=== PATIENT | female | born 1965 | race Caucasian/White ===

== ENCOUNTER 2022-10-03 11:27 | Emergency (ER) | payer MEDICARE, OTHER ==
[~2022-10-03] VITALS: Ht 160 cm; Wt 72.1 kg
[~2022-10-03 11:27] MED LIST: ACTEMRA162 MG/0.9 SC; ADAL40PEN INJ; ALBU.083IS IH; ALBU3IS INH; ALBU90I INH; ALBU90OI; ALBU90OI61 INH; ALLOVERT; AMOCLA875 PO; BECL40OI INH; Crutch1 EACH MISC; FLUSAL1005 IH; FLUSAL2505; FLUT110OIA IH; Flagyl500 MG PO; HYDACE5 PO; IPRAIS NEB; MONT4 PO; NAPR220 PO; Naprosyn500 MG PO; Norco 5-325 Ta1 EACH PO; OMEP20ER PO; OXYACE5T PO; PRED10 PO; PRED20 PO; SULF500A PO; Ventolin5 MG/1 ML INH; Zofran Odt8 MG SL
[2022-10-03 12:27] LABS: BASOPHILS ABSOLUTE AUTO 0.09 K/mm3 (0.00-0.23); BASOPHILS PERCENT AUTO 1 % (0-2); EOSINOPHILS ABSOLUTE AUTO 0.61 K/mm3 (0.00-0.68); EOSINOPHILS PERCENT AUTO 7 % (0-6); Hematocrit 52.7 % (33.0-51.0); Hemoglobin 16.8 g/dL (11.5-16.0); IMMATURE GRAN ABSOLUTE AUTO 0.01 K/mm3 (0.00-0.10); IMMATURE GRAN PERCENT AUTO 0 % (0-1); LYMPHOCYTES ABSOLUTE AUTO 2.15 K/mm3 (0.84-5.20); LYMPHOCYTES PERCENT AUTO 25 % (21-46); MONOCYTES PERCENT AUTO 7 % (4-13); Mean Corpuscular HGB 27.5 pg (26.0-34.0); Mean Corpuscular HGB Conc 31.9 g/dL (31.5-36.5); Mean Corpuscular Volume 86 fL (80-100); Mean Platelet Volume 12.1 fL (9.1-12.4); NEUTROPHILS ABSOLUTE AUTO 5.01 K/mm3 (1.96-9.15); NEUTROPHILS PERCENT AUTO 59 % (41-73); Platelet Count 229 K/mm3 (150-400); RDW Coefficient Variation 12.4 % (11.7-14.2); RDW Standard Deviation 39.2 fL (35.1-46.3); Red Blood Cell Count 6.11 M/mm3 (3.80-5.20); White Blood Cell Count 8.47 K/mm3 (4.00-11.30)
[2022-10-03] MEDS ORDERED: Rituxan10 MG/ML IV (12:37)
[2022-10-03 12:40] LABS: Albumin, Blood 3.7 g/dL (3.4-5.0); Albumin/Globulin Ratio 0.9 (0.8-1.8); Bilirubin, Total 0.6 mg/dL (0.1-1.0); Bun/Creatinine Ratio 14.6 (12.0-20.0); Calcium, Blood 9.5 mg/dL (8.5-10.1); Creatinine, Blood 0.69 mg/dL (0.40-1.00); Globulin, Blood 3.9 g/dL (2.2-4.0); Potassium, Blood 3.8 mmol/L (3.5-5.5); Total Protein, Blood 7.6 g/dL (6.4-8.2)
[2022-10-03 12:59] LABS: Influenza A, PCR NEGATIVE (NEGATIVE); Influenza B, PCR NEGATIVE (NEGATIVE); Resp Syncytial Virus, PCR NEGATIVE (NEGATIVE); SARS-Cov-2 (COVID-19) PCR, MMC NEGATIVE (NEGATIVE)
[2022-10-03] MEDS ORDERED: PRED20 PO (13:46)
== END 2022-10-03 14:10 | disposition home or self-care (01) ==
LOC: ER 11:27
PROVIDERS: Physician Assistant
DX: J45.901 Unspecified asthma with (acute) exacerbation (principal); Z79.899 Other long term (current) drug therapy; Z79.52 Long term (current) use of systemic steroids; Z88.1 Allergy status to other antibiotic agents; Z88.8 Allergy status to other drugs, medicaments and biological substances; Z20.822 Contact with and (suspected) exposure to COVID-19
CPT/HCPCS: 0241U; 36415; 71045; 80053; 85025; 94640; 94644; 94664; 96374; 99285-25; J2930

== ENCOUNTER 2023-07-24 14:52 | Emergency (ER) | payer MEDICARE, OTHER ==
[~2023-07-24] VITALS: Ht 157.5 cm; Wt 81.2 kg
[~2023-07-24 14:52] MED LIST changes: +Rituxan10 MG/ML IV
[2023-07-24 15:19] LABS: BASOPHILS PERCENT AUTO 1 % (0-2); EOSINOPHILS ABSOLUTE AUTO 0.52 K/mm3 (0.00-0.68); EOSINOPHILS PERCENT AUTO 6 % (0-6); Hemoglobin 17.6 g/dL (11.5-16.0); IMMATURE GRAN ABSOLUTE AUTO 0.01 K/mm3 (0.00-0.10); IMMATURE GRAN PERCENT AUTO 0 % (0-1); LYMPHOCYTES ABSOLUTE AUTO 2.61 K/mm3 (0.84-5.20); LYMPHOCYTES PERCENT AUTO 31 % (21-46); MONOCYTES ABSOLUTE AUTO 0.54 K/mm3 (0.16-1.47); MONOCYTES PERCENT AUTO 6 % (4-13); Mean Corpuscular HGB 28.1 pg (26.0-34.0); Mean Corpuscular HGB Conc 32.6 g/dL (31.5-36.5); Mean Corpuscular Volume 86 fL (80-100); Mean Platelet Volume 11.8 fL (9.1-12.4); NEUTROPHILS ABSOLUTE AUTO 4.73 K/mm3 (1.96-9.15); NEUTROPHILS PERCENT AUTO 56 % (41-73); Platelet Count 281 K/mm3 (150-400); RDW Coefficient Variation 12.3 % (11.7-14.2); RDW Standard Deviation 39.2 fL (35.1-46.3); Red Blood Cell Count 6.27 M/mm3 (3.80-5.20); White Blood Cell Count 8.51 K/mm3 (4.00-11.30)
[2023-07-24 15:55] LABS: Albumin, Blood 3.8 g/dL (3.4-5.0); Bilirubin, Total 0.5 mg/dL (0.1-1.0); Bun/Creatinine Ratio 10.7 (12.0-20.0); Creatinine, Blood 0.75 mg/dL (0.40-1.00); Globulin, Blood 3.9 g/dL (2.2-4.0); Potassium, Blood 4.6 mmol/L (3.5-5.5); Total Protein, Blood 7.7 g/dL (6.4-8.2)
[2023-07-24 15:58] LABS: Influenza A, PCR NEGATIVE (NEGATIVE); Influenza B, PCR NEGATIVE (NEGATIVE); Resp Syncytial Virus, PCR NEGATIVE (NEGATIVE); SARS-Cov-2 (COVID-19) PCR, MMC NEGATIVE (NEGATIVE)
[2023-07-24] MEDS ORDERED: METPRE4DP PO (17:28)
[2023-07-24 17:45] VITALS: BP 123/88
== END 2023-07-24 18:27 | disposition home or self-care (01) ==
LOC: ER 14:52
PROVIDERS: Emergency Medicine
DX: J45.901 Unspecified asthma with (acute) exacerbation (principal); J20.8 Acute bronchitis due to other specified organisms; B97.89 Other viral agents as the cause of diseases classified elsewhere
CPT/HCPCS: 0241U; 71045; 80053; 84484; 85025; 93005; 93010; 94644; 94664; 96374; 99285-25; J2930

== ENCOUNTER 2023-08-19 19:15 | Emergency (ER) | payer MEDICARE, OTHER ==
[~2023-08-19] VITALS: Ht 157.5 cm; Wt 76.7 kg
[~2023-08-19 19:15] MED LIST changes: +METPRE4DP PO
[2023-08-19 19:45] LABS: BASOPHILS PERCENT AUTO 1 % (0-2); EOSINOPHILS ABSOLUTE AUTO 0.65 K/mm3 (0.00-0.68); EOSINOPHILS PERCENT AUTO 9 % (0-6); Hemoglobin 16.8 g/dL (11.5-16.0); IMMATURE GRAN ABSOLUTE AUTO 0.01 K/mm3 (0.00-0.10); IMMATURE GRAN PERCENT AUTO 0 % (0-1); LYMPHOCYTES ABSOLUTE AUTO 2.81 K/mm3 (0.84-5.20); LYMPHOCYTES PERCENT AUTO 37 % (21-46); MONOCYTES ABSOLUTE AUTO 0.62 K/mm3 (0.16-1.47); MONOCYTES PERCENT AUTO 8 % (4-13); Mean Corpuscular HGB 27.9 pg (26.0-34.0); Mean Corpuscular HGB Conc 32.3 g/dL (31.5-36.5); Mean Corpuscular Volume 86 fL (80-100); Mean Platelet Volume 11.8 fL (9.1-12.4); NEUTROPHILS ABSOLUTE AUTO 3.36 K/mm3 (1.96-9.15); NEUTROPHILS PERCENT AUTO 45 % (41-73); Platelet Count 298 K/mm3 (150-400); RDW Coefficient Variation 12.4 % (11.7-14.2); RDW Standard Deviation 39.3 fL (35.1-46.3); Red Blood Cell Count 6.02 M/mm3 (3.80-5.20); White Blood Cell Count 7.55 K/mm3 (4.00-11.30)
[2023-08-19] MEDS ORDERED: MONT5TCH (19:52)
[2023-08-19 20:04] LABS: Albumin, Blood 3.7 g/dL (3.4-5.0); Albumin/Globulin Ratio 0.9 (0.8-1.8); Bilirubin, Total 0.6 mg/dL (0.1-1.0); Bun/Creatinine Ratio 11.8 (12.0-20.0); Calcium, Blood 8.9 mg/dL (8.5-10.1); Creatinine, Blood 0.59 mg/dL (0.40-1.00); Globulin, Blood 3.9 g/dL (2.2-4.0); Total Protein, Blood 7.6 g/dL (6.4-8.2)
[2023-08-19] MEDS ORDERED: Amoxicillin875 MG PO (20:56)
[2023-08-19] MEDS ORDERED: PRED10 PO (20:56)
[2023-08-19 21:45] VITALS: BP 166/102
== END 2023-08-19 21:51 | disposition home or self-care (01) ==
LOC: ER 19:15
PROVIDERS: Emergency Medicine
DX: J44.1 Chronic obstructive pulmonary disease with (acute) exacerbation (principal); Z79.899 Other long term (current) drug therapy; Z88.1 Allergy status to other antibiotic agents; Z88.8 Allergy status to other drugs, medicaments and biological substances
CPT/HCPCS: 71046; 80053; 83880; 85025; 93005; 93010; 96374; 99285-25; J2930

== ENCOUNTER 2024-08-29 04:29 | Inpatient (IN) | payer MEDICARE, OTHER ==
[~2024-08-29] VITALS: Ht 157.5 cm; Wt 75.6 kg
[~2024-08-29 04:29] MED LIST changes: +Amoxicillin875 MG PO; +MONT5TCH PO
[2024-08-29 04:48] LABS: pH Blood Venous 7.29 (7.34-7.37)
[2024-08-29 04:48] LABS: BASOPHILS ABSOLUTE AUTO 0.09 K/mm3 (0.00-0.23); BASOPHILS PERCENT AUTO 1 % (0-2); EOSINOPHILS ABSOLUTE AUTO 0.61 K/mm3 (0.00-0.68); EOSINOPHILS PERCENT AUTO 6 % (0-6); Hematocrit 53.7 % (33.0-51.0); IMMATURE GRAN ABSOLUTE AUTO 0.02 K/mm3 (0.00-0.10); IMMATURE GRAN PERCENT AUTO 0 % (0-1); LYMPHOCYTES ABSOLUTE AUTO 3.97 K/mm3 (0.84-5.20); LYMPHOCYTES PERCENT AUTO 40 % (21-46); MONOCYTES ABSOLUTE AUTO 0.66 K/mm3 (0.16-1.47); MONOCYTES PERCENT AUTO 7 % (4-13); Mean Corpuscular HGB 27.2 pg (26.0-34.0); Mean Corpuscular HGB Conc 31.7 g/dL (31.5-36.5); Mean Corpuscular Volume 86 fL (80-100); Mean Platelet Volume 11.6 fL (9.1-12.4); NEUTROPHILS ABSOLUTE AUTO 4.55 K/mm3 (1.96-9.15); NEUTROPHILS PERCENT AUTO 46 % (41-73); Platelet Count 339 K/mm3 (150-400); RDW Coefficient Variation 12.6 % (11.7-14.2); RDW Standard Deviation 39.6 fL (35.1-46.3); Red Blood Cell Count 6.25 M/mm3 (3.80-5.20)
[2024-08-29 04:49] LABS: Base Excess Venous 2.5 mmol/L; Bicarbonate Venous 23.8 mmol/L (24.0-30.0); PCO2 Venous 61.1 mmHg (38-42)
[2024-08-29] MEDS ORDERED: NS 1,000 ML IV SCH (05:00)
[2024-08-29] MEDS ORDERED: MethylPREDNISolone Sod Succ 125 MG Vial IV ONE (05:00)
[2024-08-29 05:04] LABS: D-Dimer, Quantitative 0.46 mg/L FEU (0.00-0.52); International Normalized Ratio 1.02; Prothrombin Time Results 10.9 Sec (9.7-11.5)
[2024-08-29 05:13] LABS: Bilirubin, Total 0.6 mg/dL (0.1-1.0); Bun/Creatinine Ratio 9.4 (12.0-20.0); Calcium, Blood 9.4 mg/dL (8.5-10.1); Creatinine, Blood 0.75 mg/dL (0.40-1.00); Globulin, Blood 4.2 g/dL (2.2-4.0); Magnesium, Blood 2.4 mg/dL (1.6-2.4); Phosphorus, Blood 4.7 mg/dL (2.5-4.9); Potassium, Blood 3.9 mmol/L (3.5-5.5); Thyroid Stimulating Hormone 3.44 uIU/mL (0.360-4.800); Total Protein, Blood 8.2 g/dL (6.4-8.2)
[2024-08-29] MEDS ORDERED: CefTRIAXone Sodium 1,000 MG in NS 50 ML IV ONE (05:30)
[2024-08-29] MEDS ORDERED: FLU VACC TS2024-25(6MOS UP)/PF 45 MCG/0.5 ML SYRINGE IM SCH (06:15)
[2024-08-29] MEDS ORDERED: Acetaminophen 325 MG TABLET PO PRN (06:15)
[2024-08-29] MEDS ORDERED: Albuterol 2.5 MG/3 ML VIAL INH PRN (06:15)
[2024-08-29 08:02] LABS: Influenza A, PCR NEGATIVE (NEGATIVE); Influenza B, PCR NEGATIVE (NEGATIVE); Resp Syncytial Virus, PCR NEGATIVE (NEGATIVE); SARS-Cov-2 (COVID-19) PCR, MMC NEGATIVE (NEGATIVE)
[2024-08-29 08:13] LABS: Base Excess Venous -2.1 mmol/L; Bicarbonate Venous 23.1 mmol/L (24.0-30.0); PCO2 Venous 36.6 mmHg (38-42)
[2024-08-29] MEDS ORDERED: MethylPREDNISolone Sod Succ 125 MG Vial IV SCH (09:00)
[2024-08-29 09:33] VITALS: BP 140/92
[2024-08-29] MEDS ORDERED: ALBU2.5V5 INH (10:16)
[2024-08-29] MEDS ORDERED: THERA-D2000 UNIT PO (10:16)
[2024-08-29] MEDS ORDERED: OMEP20ER PO (10:16)
[2024-08-29] MEDS ORDERED: Albuterol 2.5 MG/3 ML VIAL INH SCH (10:55)
[2024-08-29] MEDS ORDERED: Mometasone/Formoterol MDI 100/5 mcg 13 GM INH SCH (11:05)
[2024-08-29 12:43] LABS: Adenovirus Not Detected (NOT DETECT); Bordetella pertussis Not Detected (NOT DETECT); Chlamydophila pneumoniae Not Detected (NOT DETECT); Coronavirus 229E Not Detected (NOT DETECT); Coronavirus HKU1 Not Detected (NOT DETECT); Coronavirus NL63 Not Detected (NOT DETECT); Coronavirus OC43 Not Detected (NOT DETECT); Human Metapneumovirus Not Detected (NOT DETECT); Human Rhinovirus/Enterovirus Detected (NOT DETECT); Influenza A/2009-H1 Not Detected (NOT DETECT); Influenza A/H1 Not Detected (NOT DETECT); Influenza A/H3 Not Detected (NOT DETECT); Influenza B Not Detected (NOT DETECT); Mycoplasma pneumoniae Not Detected (NOT DETECT); Parainfluenza Virus 1 Not Detected (NOT DETECT); Parainfluenza Virus 2 Not Detected (NOT DETECT); Parainfluenza Virus 3 Not Detected (NOT DETECT); Parainfluenza Virus 4 Not Detected (NOT DETECT); Respiratory Syncytial Virus Not Detected (NOT DETECT); SARS-Cov-2 (COVID-19), BioFire Not Detected (NOT DETECT)
[2024-08-29 15:38] VITALS: BP 119/71
--- NOTE | 2024-08-29 19:16 | NUR ---
PATIENT RECIEVED TO UNIT AT 1705 WITH NO APPARENT DISTRESS. AOX4 PLEASANT AND COOPERATIVE WITH CARE. SHE IS UP AD KANG TO BATHROOM. AT BEDSIDE.
--- NOTE | 2024-08-29 19:19 | NUR ---
PATIENT ON 3LPM NC AFTER BEING RECIEVED TO THIS UNIT THIS AM. SHE IS AOX4 AND COOPERATIVE WITH CARE. DAUGHTER AT BEDSIDE. SHE DENIES SHORTNESS OF BREATH AT THIS TIME HOWEVER HAS WHEEZES THROUGHOUT. NANDO RT NOTIFIED. RESOLVED WITH BREATHING TREATMENTS. BED IN LOW POSITION, CALL LIGHT IN REACH. PATIENT ABLE TO MAKE NEEDS KNOWN.
[2024-08-29 20:00] VITALS: BP 104/68
[2024-08-29] MEDS ORDERED: Montelukast Sodium 10 MG Tab PO SCH (21:00)
--- NOTE | 2024-08-30 01:59 | NUR ---
lab called in results for gram+ cocci
[2024-08-30 05:37] VITALS: BP 97/56
[2024-08-30 05:58] LABS: Base Excess Venous 0.2 mmol/L; Bicarbonate Venous 24.7 mmol/L (24.0-30.0); PCO2 Venous 39.8 mmHg (38-42); pH Blood Venous 7.41 (7.34-7.37)
[2024-08-30] MEDS ORDERED: Omeprazole 20 MG CapCR PO SCH (06:00)
--- NOTE | 2024-08-30 06:00 | NUR ---
SHIFT SUMMARY PT A&OX4 AND ANSWERS QUESTIONS APPROPRIATELY. PT RECEIVED SCHEDULED MEDICATIONS WITH NO ADVERSE REACTIONS. PT VSS, SHUTTLE SPOTTER LOW AT 0530 BUT ASYMPTOMATIC. PT SPENT MOST OF SHIFT IN BED WITH EYES CLOSED AND RESPIRATIONS EVEN AND UNLABORED. PT REPOSITIONED Q2HRS INDEPENDENTLY. NO ACUTE EVENTS AT THIS TIME. PT LEFT IN A POSITION OF SAFETY WITH FALL PRECAUTIONS IN PLACE AND CALL LIGHT IN REACH.
[2024-08-30 06:10] LABS: BASOPHILS ABSOLUTE AUTO 0.01 K/mm3 (0.00-0.23); BASOPHILS PERCENT AUTO 0 % (0-2); EOSINOPHILS PERCENT AUTO 0 % (0-6); Hematocrit 45.9 % (33.0-51.0); Hemoglobin 14.6 g/dL (11.5-16.0); IMMATURE GRAN ABSOLUTE AUTO 0.05 K/mm3 (0.00-0.10); IMMATURE GRAN PERCENT AUTO 0 % (0-1); LYMPHOCYTES ABSOLUTE AUTO 1.13 K/mm3 (0.84-5.20); LYMPHOCYTES PERCENT AUTO 10 % (21-46); MONOCYTES ABSOLUTE AUTO 0.12 K/mm3 (0.16-1.47); MONOCYTES PERCENT AUTO 1 % (4-13); Mean Corpuscular HGB 27.6 pg (26.0-34.0); Mean Corpuscular HGB Conc 31.8 g/dL (31.5-36.5); Mean Corpuscular Volume 87 fL (80-100); Mean Platelet Volume 12.1 fL (9.1-12.4); NEUTROPHILS ABSOLUTE AUTO 9.94 K/mm3 (1.96-9.15); NEUTROPHILS PERCENT AUTO 88 % (41-73); Platelet Count 243 K/mm3 (150-400); RDW Coefficient Variation 12.7 % (11.7-14.2); Red Blood Cell Count 5.29 M/mm3 (3.80-5.20); White Blood Cell Count 11.25 K/mm3 (4.00-11.30)
[2024-08-30 06:51] LABS: Magnesium, Blood 2.5 mg/dL (1.6-2.4)
[2024-08-30 06:52] LABS: Albumin, Blood 3.2 g/dL (3.4-5.0); Albumin/Globulin Ratio 0.9 (0.8-1.8); Bilirubin, Total 0.3 mg/dL (0.1-1.0); Bun/Creatinine Ratio 22.4 (12.0-20.0); Calcium, Blood 8.6 mg/dL (8.5-10.1); Creatinine, Blood 0.62 mg/dL (0.40-1.00); Globulin, Blood 3.6 g/dL (2.2-4.0); Potassium, Blood 4.4 mmol/L (3.5-5.5); Total Protein, Blood 6.8 g/dL (6.4-8.2)
[2024-08-30 07:39] VITALS: BP 104/64
[2024-08-30] MEDS ORDERED: Cholecalciferol 1000 Unit Tablet (=25MCG) PO SCH (09:00)
[2024-08-30] MEDS ORDERED: Enoxaparin 40 MG/0.4 ML SYR SC SCH (09:00)
[2024-08-30 15:19] VITALS: BP 98/61
[2024-08-30 20:10] VITALS: BP 113/59
[2024-08-31 04:52] VITALS: BP 125/80
--- NOTE | 2024-08-31 04:55 | NUR ---
SHIFT SUMMARY A&0X4,UNEVENTFUL SHIFT, RECEIVED SOLUMEDROL & EDUCATED ON , DENIES ANY RESP.DISTRESS,PAIN OR OTHER PROBLEMS EXCEPT FOR EXTREME WEAKNESS AND FATIGUE. CALLS APPROPRIATELY FOR STANDBY ASSIST, O2 ON AT 3L/M VIA NC OVERNIGHT AND SATS WDL-USUALLY MID 90s.NOT ON TELEMETRY. LUNG SOUNDS VERY COARSE, MOIST USUALLY NONPRODUCTIVE COUGH WITH OCCASSIONAL SCANT DARK COLORED THICK MUCOUS COUGHED OUT PER PATIENT REPORT BUT NOT SEEM BY HEAT TREAT SUPERVISOR.
[2024-08-31 07:03] VITALS: BP 100/55
[2024-08-31 14:57] VITALS: BP 122/74
[2024-08-31 19:53] VITALS: BP 145/65
--- NOTE | 2024-08-31 20:40 | NUR ---
PT WEEPING AND ANXIOUS AND MISSING HER FAMILY / PETS. NEW ORDER OBTAINED FOR ATIVAN 0.5MG PO ONE TIME AMXIETY (SEE EMAR).
[2024-08-31] MEDS ORDERED: LORazepam 0.5 MG Tab PO ONE (20:50)
--- NOTE | 2024-09-01 04:04 | NUR ---
LOSS CONTROL TECHNICIAN SUMMARY: PT A&O X4. PT WEEEPY AND ANXIOUS AT BEGINNING OF SHIFT. STATES SHE MISSES HER PETS AND . ORDER OBTAINED FOR ONE TIME DOES OF ATIVAN 0.5MG PO; EFFECTIVE. NO ACUTE EVENTS SINCE MEDICATION ADMINISTERED. NO RESPIRATORY DISTRESS NOTED OR REPORTED. SATS MAINTAINED ABOVE 92% ON 2.5L VIA NC. INDEPENDENT WITH CARES IN ROOM. BED IN LOWEST POSITION. CALL LIGHT IN REACH.
[2024-09-01 04:55] VITALS: BP 121/78
[2024-09-01 06:12] LABS: Bun/Creatinine Ratio 16.9 (12.0-20.0); Calcium, Blood 8.9 mg/dL (8.5-10.1); Creatinine, Blood 0.53 mg/dL (0.40-1.00); Potassium, Blood 4.3 mmol/L (3.5-5.5)
[2024-09-01 08:26] VITALS: BP 112/78
--- NOTE | 2024-09-01 13:18 | NUR ---
HOME OXYGEN EVAL COMPLETED, PT DOESN'T NEED OXYGEN AT HOME. RN CONSULTED WITH ROOM SERVICE RUNNER ANGEL TO CONFIRM THAT PT HAS NEBULIZER AT HOME. PT THEN ASSISTED WITH A SHOWER BY [employer] [facility], SET UP EQUIPMENT AND PT SHOWERED INDEPENDENTLY. PT'S AT BEDSIDE, STATES THEY PREFER [facility].
[2024-09-01] MEDS ORDERED: ALBU90OI INH (13:42)
[2024-09-01] MEDS ORDERED: DULERA 100 MCG/13 GM INH (13:43)
[2024-09-01] MEDS ORDERED: Deltasone 10 mg10 MG (13:46)
--- NOTE | 2024-09-01 18:44 | NUR ---
LATE ENTRY: PT DISCHARGED TO CARE OF , DRIVING A PRIVATE VEHICLE. IV WAS REMOVED BY STUDENT NURSE. [facility] WHEELED PT OUT OF [facility] VIA A WHEELCHAIR. THIS RN FAXED MEDICATION LIST TO [facility], PER PT REQUEST. RN EDUCATED ON DISCHARGE MEDICATIONS AND TO KEEP ALL APPTS. PERSONAL BELONGINGS RETURNED TO PT. PT TOLERATED DISCHARGE PROCEDURE WELL.
== END 2024-09-01 14:50 | disposition home or self-care (01) | DRG 189 ==
LOC: ER 04:29 → MEDS 04:30
PROVIDERS: Emergency Medicine; Internal Medicine; ADMIT Student in an Organized Health Care Education/Training Program
PROC: 5A09357 Assistance with Respiratory Ventilation, Less than 24 Consecutive Hours, Continuous Positive Airway Pressure (ICD-10-PCS; principal; 2024-08-29)
DX: J96.01 Acute respiratory failure with hypoxia (principal); J45.901 Unspecified asthma with (acute) exacerbation; J96.02 Acute respiratory failure with hypercapnia; B34.8 Other viral infections of unspecified site; K21.9 Gastro-esophageal reflux disease without esophagitis; E55.9 Vitamin D deficiency, unspecified; B34.1 Enterovirus infection, unspecified; M05.10 Rheumatoid lung disease with rheumatoid arthritis of unspecified site; Z88.1 Allergy status to other antibiotic agents; Z88.8 Allergy status to other drugs, medicaments and biological substances; Z79.52 Long term (current) use of systemic steroids; Z79.620 Long term (current) use of immunosuppressive biologic; Z87.891 Personal history of nicotine dependence
CPT/HCPCS: 0202U; 0241U; 36415; 71046; 80048; 80053; 82803; 83605; 83735; 84100; 84145; 84443; 84484; 85025; 85379; 85610; 85730; 87040; 93005; 93010; 94640; 94660; 94664; 94761; 94762; 96365; 96375; 96376; 99285-25; A9270; G0378; J0696; J1650; J2919; J7030

== ENCOUNTER 2024-10-16 09:42 | Day surgery (SDC) | payer MEDICARE, OTHER ==
[~2024-10-16] VITALS: Ht 157.5 cm; Wt 76.7 kg
[~2024-10-16 09:42] MED LIST changes: +ALBU2.5V5 INH; +ALBU90OI INH; +Bupivacaine 0.5% W/EPI 1:200000 SDV 30 ML Vial ONE; +DULERA 100 MCG/13 GM INH; +Deltasone 10 mg10 MG; +Lactated Ringer's 1,000 ML IV ONE; +THERA-D2000 UNIT PO
[2024-10-16] MEDS ORDERED: CeFAZolin Sodium 2,000 MG VIAL ONE (09:55)
[2024-10-16] MEDS ORDERED: Lactated Ringer's 1,000 ML IV ONE (10:15)
[2024-10-16] MEDS ORDERED: propofoL 20 ML IV ONE (10:49)
[2024-10-16] MEDS ORDERED: FentaNYL Citrate 50 MCG/ML 2 ML Injection ONE (10:49)
[2024-10-16] MEDS ORDERED: Ondansetron HCl 2 MG / ML 2ML Vial ONE (10:58)
[2024-10-16] MEDS ORDERED: Dexamethasone Sod Phos 10 MG/ML 1ML VIAL ONE (10:58)
[2024-10-16] MEDS ORDERED: Phenylephrine HCl 100 MCG/ML-NS 10MLSYR (1MG/10ML) ONE (11:04)
--- NOTE | 2024-10-16 11:15 | NUR ---
10/16/24 Ashley Doe ACETIC ACID POURED ONTO THE FIELD TO [employer] FOR USE AT THE [facility]
[2024-10-16 11:51] VITALS: BP 128/77
== END 2024-10-16 12:17 | disposition home or self-care (01) ==
LOC: ORSCSDS 09:42
PROVIDERS: Obstetrics & Gynecology
PROC: 0UBC7ZX Excision of Cervix, Via Natural or Artificial Opening, Diagnostic (ICD-10-PCS; principal; 2024-10-16 11:00)
DX: R87.613 High grade squamous intraepithelial lesion on cytologic smear of cervix (HGSIL) (principal); J45.909 Unspecified asthma, uncomplicated; K21.9 Gastro-esophageal reflux disease without esophagitis; E66.9 Obesity, unspecified; Z68.30 Body mass index [BMI] 30.0-30.9, adult; Z79.899 Other long term (current) drug therapy
CPT/HCPCS: 88305; 88342; J0690; J1100; J2371; J2405; J2704; J3010; J7120

== ENCOUNTER 2025-05-25 09:57 | Day surgery (SDC) | payer MEDICARE, OTHER ==
[~2025-05-25] VITALS: Ht 157.5 cm; Wt 72.5 kg
[~2025-05-25 09:57] MED LIST changes: -Bupivacaine 0.5% W/EPI 1:200000 SDV 30 ML Vial ONE; +Glycopyrrolate 0.2 MG/ML 1MLVIAL ONE; -Lactated Ringer's 1,000 ML IV ONE; +Ondansetron HCl 2 MG / ML 2ML Vial ONE; +ePHEDrine Sulfate 50 MG/ML 1ML Injection ONE
[2025-05-25] MEDS ORDERED: ERGO50000 (10:35)
[2025-05-25 12:11] VITALS: BP 117/75
== END 2025-05-25 11:50 | disposition home or self-care (01) ==
LOC: ORSCSDS 09:57
PROVIDERS: Internal Medicine Gastroenterology
PROC: 0DJ08ZZ Inspection of Upper Intestinal Tract, Via Natural or Artificial Opening Endoscopic (ICD-10-PCS; principal; 2025-05-25 14:15)
DX: R13.10 Dysphagia, unspecified (principal); K21.9 Gastro-esophageal reflux disease without esophagitis; J45.909 Unspecified asthma, uncomplicated; M06.9 Rheumatoid arthritis, unspecified; Z79.899 Other long term (current) drug therapy
CPT/HCPCS: J0461; J2003; J2405; J2704; J7120; Q9968

== ENCOUNTER 2025-07-20 13:22 | Emergency (ER) | payer MEDICARE, OTHER ==
[~2025-07-20] VITALS: Ht 157.5 cm; Wt 77.1 kg
[~2025-07-20 13:22] MED LIST changes: +ERGO50000; -Glycopyrrolate 0.2 MG/ML 1MLVIAL ONE; -Ondansetron HCl 2 MG / ML 2ML Vial ONE; -ePHEDrine Sulfate 50 MG/ML 1ML Injection ONE
[2025-07-20 14:49] LABS: BASOPHILS ABSOLUTE AUTO 0.06 K/mm3 (0.00-0.23); BASOPHILS PERCENT AUTO 1 % (0-2); EOSINOPHILS ABSOLUTE AUTO 0.31 K/mm3 (0.00-0.68); EOSINOPHILS PERCENT AUTO 4 % (0-6); Hematocrit 35.2 % (33.0-51.0); Hemoglobin 11.4 g/dL (11.5-16.0); IMMATURE GRAN ABSOLUTE AUTO 0.05 K/mm3 (0.00-0.10); IMMATURE GRAN PERCENT AUTO 1 % (0-1); LYMPHOCYTES ABSOLUTE AUTO 1.92 K/mm3 (0.84-5.20); LYMPHOCYTES PERCENT AUTO 21 % (21-46); MONOCYTES ABSOLUTE AUTO 0.78 K/mm3 (0.16-1.47); MONOCYTES PERCENT AUTO 9 % (4-13); Mean Corpuscular HGB Conc 32.4 g/dL (31.5-36.5); Mean Corpuscular Volume 86 fL (80-100); NEUTROPHILS ABSOLUTE AUTO 5.85 K/mm3 (1.96-9.15); NEUTROPHILS PERCENT AUTO 65 % (41-73); NRBC ABSOLUTE 0.00 K/mm3 (0.00-0.02); NRBC Auto 0.0 /100 WBC (0.0-0.2); Platelet Count 260 K/mm3 (150-400); RDW Coefficient Variation 12.9 % (11.7-14.2); RDW Standard Deviation 40.1 fL (35.1-46.3)
[2025-07-20 15:25] VITALS: BP 116/88
[2025-07-20] MEDS ORDERED: OXYC5 PO (16:09)
== END 2025-07-20 16:54 | disposition home or self-care (01) ==
LOC: ER 13:22
PROVIDERS: Physician Assistant
DX: M79.661 Pain in right lower leg (principal); J45.909 Unspecified asthma, uncomplicated; Z96.651 Presence of right artificial knee joint; Z88.1 Allergy status to other antibiotic agents; Z88.8 Allergy status to other drugs, medicaments and biological substances; Z79.899 Other long term (current) drug therapy
CPT/HCPCS: 85025; 93971; 99284-25; A9270